=== PATIENT | female | born 1970 | race Caucasian/White ===

== ENCOUNTER → 2017-11-11 | Outpatient (CLI) | payer BC, OTHER ==
[~2017-11-11] MED LIST: CIPR500T89 PO; PERCOCET PO
--- NOTE | 2017-11-11 15:47 | REPMRS ---
Patient History The patient states she had a clinical breast exam in Oct 2017. Patient had first child at age 33. No known family history of cancer. Taking hormonal contraceptives for 7 years. Digital Mammo Screening Bilat: November 11, 2017 - Exam #: [id number] Bilateral CC and MLO view(s) were taken. Technologist: Cherelle Martinez, Technologist Prior study comparison: June 20, 2016, right breast digital mammo diagnostic unilateral performed at [facility]. June 05, 2016, bilateral digital mammo screening bilat performed at [facility]. FINDINGS: There are scattered fibroglandular densities. There is a fairly symmetric fibroglandular pattern in both breasts. There has been no interval development of masses, areas of architectural distortion or clusters of microcalcifications typical of malignancy. ASSESSMENT: BI-RADS/ACR category 2 mammogram. Benign finding(s). Recommendation Routine screening mammogram of both breasts in 1 year (for women over age 40). This mammogram was interpreted with the aid of an FDA-approved computer-aided dectection system. Electronically Signed By: Clifford Carpenter MD 11/11/17 [id number]
== END ==
LOC: M RAD 13:53
PROVIDERS: ATTEND Nurse Practitioner Family
DX: Z12.31 Encounter for screening mammogram for malignant neoplasm of breast (principal); Z79.3 Long term (current) use of hormonal contraceptives

== ENCOUNTER → 2017-12-09 | Outpatient (REF) | payer OTHER | LOC: M SFHCCLAY 16:27 | DX: J02.9 Acute pharyngitis, unspecified (principal) ==

== ENCOUNTER → 2018-02-26 | Outpatient (REF) | payer OTHER ==
[2018-02-26 17:09] LABS: HEMATOCRIT 40.4 % (36.0-47.0); HEMOGLOBIN 13.3 g/dl (12.0-16.0); MEAN CORPUSCULAR HEMOGLOBIN 29.9 pg (27.0-33.0); MEAN CORPUSCULAR HGB CONC 32.9 g/dl (32.0-36.5); MEAN CORPUSCULAR VOLUME 90.8 fl (80.0-96.0); PLATELET COUNT, AUTOMATED 380 10^3/uL (150-450); RED BLOOD COUNT 4.45 10^6/uL (4.00-5.40); RED CELL DISTRIBUTION WIDTH 12.4 % (11.5-14.5); WHITE BLOOD COUNT 9.7 10^3/uL (4.0-10.0)
[2018-02-26 17:31] LABS: ALBUMIN 3.5 GM/DL (3.2-5.2); ALBUMIN/GLOBULIN RATIO 1.09 (1.00-1.93); ALKALINE PHOSPHATASE 70 U/L (45-117); ALT/SGPT 29 U/L (12-78); ANION GAP 7 MEQ/L (8-16); AST/SGOT 20 U/L (7-37); BILIRUBIN,TOTAL 0.4 MG/DL (0.2-1.0); BLOOD UREA NITROGEN 10 MG/DL (7-18); CALCIUM LEVEL 9.8 MG/DL (8.5-10.1); CARBON DIOXIDE LEVEL 25 MEQ/L (21-32); CHLORIDE LEVEL 109 MEQ/L (98-107); CHOLESTEROL LEVEL 177 MG/DL (<200); CHOLESTEROL RISK RATIO 3.765 (<5); GLOMERULAR FILTRATION RATE > 60.0 (>58); GLUCOSE, FASTING 98 MG/DL (70-100); HDL CHOLESTEROL 47 MG/DL (>40); LDL CHOLESTEROL 104.4 MG/DL (<100); NON-HDL-C 130 MG/DL; POTASSIUM SERUM 4.1 MEQ/L (3.5-5.1); SODIUM LEVEL 141 MEQ/L (136-145); TOTAL PROTEIN 6.7 GM/DL (6.4-8.2); TRIGLYCERIDES LEVEL 128 MG/DL (<150)
== END ==
LOC: M SFHCCLAY 10:38
DX: I10 Essential (primary) hypertension (principal); E78.4 Other hyperlipidemia; F41.8 Other specified anxiety disorders; E55.9 Vitamin D deficiency, unspecified

== ENCOUNTER → 2019-03-04 | Outpatient (CLI) | payer BC, OTHER ==
[~2019-03-04] MED LIST changes: +OXYC1TAB23 PO; -PERCOCET PO
--- NOTE | 2019-03-04 15:55 | REP ---
Clinical: Bronchitis type symptoms . Comparison: None . Technique: PA and lateral. Findings: The mediastinum and cardiac silhouette are normal. The lung vilchis are clear and without acute consolidation, effusion, or pneumothorax. The skeletal structures are intact and normal. Impression: 1. No acute cardiopulmonary process.
== END ==
LOC: M CLY 15:12
PROVIDERS: ATTEND Nurse Practitioner Family
DX: Z87.09 Personal history of other diseases of the respiratory system (principal)

== ENCOUNTER → 2019-05-12 | Outpatient (REF) | payer OTHER ==
[2019-05-12 17:09] LABS: ALBUMIN 3.3 GM/DL (3.2-5.2); ALT/SGPT 22 U/L (12-78); BILIRUBIN,TOTAL 0.2 MG/DL (0.2-1.0); BLOOD UREA NITROGEN 16 MG/DL (7-18); CALCIUM LEVEL 10.1 MG/DL (8.5-10.1); CARBON DIOXIDE LEVEL 29 MEQ/L (21-32); CHLORIDE LEVEL 108 MEQ/L (98-107); CHOLESTEROL LEVEL 185 MG/DL (<200); CHOLESTEROL RISK RATIO 3.189 (<5); CREATININE FOR GFR 0.63 MG/DL (0.55-1.30); GLOMERULAR FILTRATION RATE > 60.0 (>58); GLUCOSE, FASTING 121 MG/DL (70-100); HDL CHOLESTEROL 58 MG/DL (>40); LDL CHOLESTEROL 101 MG/DL (<100); NON-HDL-C 127 MG/DL; POTASSIUM SERUM 4.3 MEQ/L (3.5-5.1); SODIUM LEVEL 141 MEQ/L (136-145); TOTAL PROTEIN 6.9 GM/DL (6.4-8.2); TRIGLYCERIDES LEVEL 132 MG/DL (<150)
[2019-05-12 17:11] LABS: TOTAL 25(OH) VITAMIN D 35.2 NG/ML (30.0-100.0)
[2019-05-12 17:21] LABS: HEMATOCRIT 40.7 % (36.0-47.0); HEMOGLOBIN 13.3 g/dl (12.0-15.5); MEAN CORPUSCULAR HGB CONC 32.7 g/dl (32.0-36.5); MEAN CORPUSCULAR VOLUME 91.7 fl (80.0-96.0); PLATELET COUNT, AUTOMATED 415 10^3/uL (150-450); RED BLOOD COUNT 4.44 10^6/uL (4.00-5.40); WHITE BLOOD COUNT 10.9 10^3/uL (4.0-10.0)
== END ==
LOC: M SFHCCLAY 10:44
PROVIDERS: ATTEND Nurse Practitioner Family
DX: I10 Essential (primary) hypertension (principal); E78.49 Other hyperlipidemia; F32.9 Major depressive disorder, single episode, unspecified; E55.9 Vitamin D deficiency, unspecified

== ENCOUNTER → 2019-12-18 | Outpatient (CLI) | payer BC, OTHER ==
--- NOTE | 2019-12-18 19:41 | REPMRS ---
Patient History The patient states she had a clinical breast exam in March 2019. Patient had first child at age 33. No known family history of cancer. Taking hormonal contraceptives for 9 years. Digital Woman Screen Mammo: December 18, 2019 - Exam #: [id number] Bilateral CC and MLO view(s) were taken. Technologist: Rosi De Leon, Technologist Prior study comparison: November 11, 2017, bilateral digital mammo screening bilat, performed at [facility]. June 20, 2016, right breast digital mammo diagnostic unilateral, performed at [facility]. May 21, 2014, bilateral digital mammo screening bilat, performed at [facility]. FINDINGS: The breast tissue is heterogeneously dense. This may lower the sensitivity of mammography. There is a moderate amount of heterogeneously dense fibroglandular tissue which is fairly symmetric. There is no interval development of dominant mass, architectural distortion, or grouped microcalcification typical of malignancy. There has been no change in the appearance of the mammogram from the prior studies. 3-D tomosynthesis shows no additional findings. Assessment: BI-RADS/ACR category 1 mammogram. Negative Mammogram. Recommendation Routine screening mammogram of both breasts in 1 year (for women over age 40). This patient's Lifetime Breast Cancer RIsk is estimated at 11.9 %. This mammogram was interpreted with the aid of an FDA-approved computer-aided dectection system. Electronically Signed By: Hakan Márquez MD 12/18/19 [id number]
== END ==
LOC: M WHC 13:37
PROVIDERS: ATTEND Nurse Practitioner Family
DX: Z12.31 Encounter for screening mammogram for malignant neoplasm of breast (principal)

== ENCOUNTER → 2020-03-11 | Outpatient (REF) | payer OTHER ==
[2020-03-11 16:10] LABS: HEMATOCRIT 39.8 % (36.0-47.0); HEMOGLOBIN 13.1 g/dl (12.0-15.5); MEAN CORPUSCULAR HEMOGLOBIN 29.6 pg (27.0-33.0); MEAN CORPUSCULAR HGB CONC 32.9 g/dl (32.0-36.5); MEAN CORPUSCULAR VOLUME 89.8 fl (80.0-96.0); PLATELET COUNT, AUTOMATED 352 10^3/uL (150-450); RED BLOOD COUNT 4.43 10^6/uL (4.00-5.40); WHITE BLOOD COUNT 8.8 10^3/uL (4.0-10.0)
[2020-03-11 16:24] LABS: ALBUMIN 3.7 GM/DL (3.2-5.2); ALT/SGPT 30 U/L (12-78); BILIRUBIN,TOTAL 0.5 MG/DL (0.2-1.0); BLOOD UREA NITROGEN 18 MG/DL (7-18); CALCIUM LEVEL 10.6 MG/DL (8.5-10.1); CARBON DIOXIDE LEVEL 29 MEQ/L (21-32); CHLORIDE LEVEL 107 MEQ/L (98-107); CHOLESTEROL LEVEL 176 MG/DL (<200); CHOLESTEROL RISK RATIO 3.034 (<5); CREATININE FOR GFR 0.64 MG/DL (0.55-1.30); GLOMERULAR FILTRATION RATE > 60.0 (>58); GLUCOSE, FASTING 123 MG/DL (70-100); HDL CHOLESTEROL 58 MG/DL (>40); LDL CHOLESTEROL 97 MG/DL (<100); NON-HDL-C 118 MG/DL; POTASSIUM SERUM 3.7 MEQ/L (3.5-5.1); SODIUM LEVEL 141 MEQ/L (136-145); TOTAL 25(OH) VITAMIN D 43.1 NG/ML (30.0-100.0); TOTAL PROTEIN 6.8 GM/DL (6.4-8.2); TRIGLYCERIDES LEVEL 103 MG/DL (<150)
== END ==
LOC: M SFHCCLAY 10:30
PROVIDERS: ATTEND Nurse Practitioner Family
DX: E78.5 Hyperlipidemia, unspecified (principal); I10 Essential (primary) hypertension; F32.9 Major depressive disorder, single episode, unspecified; E55.9 Vitamin D deficiency, unspecified

== ENCOUNTER → 2020-10-11 | Outpatient (REF) | payer OTHER ==
[2020-10-11 16:37] LABS: HEMOGLOBIN A1c 5.6 %
[2020-10-11 16:52] LABS: CHOLESTEROL RISK RATIO 3.454 (<5); TOTAL 25(OH) VITAMIN D 28.3 NG/ML (30.0-100.0)
== END ==
LOC: M SFHCCLAY 12:16
PROVIDERS: ATTEND Nurse Practitioner Family
DX: R73.9 Hyperglycemia, unspecified (principal); E78.5 Hyperlipidemia, unspecified; E55.9 Vitamin D deficiency, unspecified

== ENCOUNTER → 2021-04-11 | Outpatient (REF) | payer OTHER ==
[2021-04-11 17:42] LABS: CHOLESTEROL RISK RATIO 3.328 (<5); TOTAL 25(OH) VITAMIN D 39.8 NG/ML (30.0-100.0)
== END ==
LOC: M SFHCCLAY 10:13
PROVIDERS: ATTEND Nurse Practitioner Family
DX: E78.5 Hyperlipidemia, unspecified (principal); E55.9 Vitamin D deficiency, unspecified

== ENCOUNTER → 2022-02-15 | Outpatient (REF) | payer OTHER ==
[2022-02-15 16:58] LABS: HEMATOCRIT 40.8 % (36.0-47.0); HEMOGLOBIN 13.5 g/dl (12.0-15.5); MEAN CORPUSCULAR HEMOGLOBIN 29.7 pg (27.0-33.0); MEAN CORPUSCULAR HGB CONC 33.1 g/dl (32.0-36.5); MEAN CORPUSCULAR VOLUME 89.9 fl (80.0-96.0); PLATELET COUNT, AUTOMATED 405 10^3/uL (150-450); RED BLOOD COUNT 4.54 10^6/uL (4.00-5.40); WHITE BLOOD COUNT 9.4 10^3/uL (4.0-10.0)
[2022-02-15 17:27] LABS: ALT/SGPT 27 U/L (12-78); BILIRUBIN,TOTAL 0.3 MG/DL (0.2-1.0); BLOOD UREA NITROGEN 18 MG/DL (7-18); CALCIUM LEVEL 11.3 MG/DL (8.5-10.1); CARBON DIOXIDE LEVEL 29 MEQ/L (21-32); CHLORIDE LEVEL 109 MEQ/L (98-107); CHOLESTEROL LEVEL 208 MG/DL (<200); CHOLESTEROL RISK RATIO 3.409 (<5); CREATININE FOR GFR 0.62 MG/DL (0.55-1.30); GLOMERULAR FILTRATION RATE > 60.0 (>51); GLUCOSE, FASTING 126 MG/DL (70-100); HDL CHOLESTEROL 61 MG/DL (>40); LDL CHOLESTEROL 119 MG/DL (<100); NON-HDL-C 147 MG/DL; POTASSIUM SERUM 4.3 MEQ/L (3.5-5.1); SODIUM LEVEL 142 MEQ/L (136-145); TOTAL 25(OH) VITAMIN D 45.3 NG/ML (30.0-100.0); TRIGLYCERIDES LEVEL 142 MG/DL (<150)
[2022-02-15 18:17] LABS: HEMOGLOBIN A1c 5.5 %
== END ==
LOC: M SFHCCLAY 10:24
PROVIDERS: ATTEND Nurse Practitioner Family
DX: Z13.1 Encounter for screening for diabetes mellitus (principal); I10 Essential (primary) hypertension; E78.5 Hyperlipidemia, unspecified; E55.9 Vitamin D deficiency, unspecified

== ENCOUNTER → 2022-05-01 | Outpatient (CLI) | payer BC, OTHER | LOC: M WHC 11:36 | PROVIDERS: ATTEND Nurse Practitioner Family | DX: Z12.31 Encounter for screening mammogram for malignant neoplasm of breast (principal) ==

== ENCOUNTER → 2023-02-14 | Outpatient (REF) | payer OTHER ==
[2023-02-14 19:41] LABS: ALBUMIN 3.8 G/DL (3.2-5.2); ALKALINE PHOSPHATASE 93 U/L (46-116); ALT/SGPT 24 U/L (7.0-40); AST/SGOT 14 U/L (<34); BILIRUBIN,TOTAL 0.5 MG/DL (0.3-1.2); BLOOD UREA NITROGEN 14 MG/DL (9-23); CALCIUM LEVEL 11.2 MG/DL (8.5-10.1); CARBON DIOXIDE LEVEL 30 MMOL/L (20-31); CHLORIDE LEVEL 107 MMOL/L (98-107); CHOLESTEROL LEVEL 173 MG/DL (<200); CHOLESTEROL RISK RATIO 2.87 (<5); CREATININE FOR GFR 0.48 MG/DL (0.55-1.30); GLOMERULAR FILTRATION RATE > 60.0 (>51); GLUCOSE, FASTING 110 MG/DL (60-100); HDL CHOLESTEROL 60.2 MG/DL (>40); LDL CHOLESTEROL 90.6 MG/DL (<100); NON-HDL-C 112.8 MG/DL; POTASSIUM SERUM 4.1 MMOL/L (3.5-5.1); SODIUM LEVEL 138 MMOL/L (136-145); TOTAL PROTEIN 6.8 G/DL (5.7-8.2); TRIGLYCERIDES LEVEL 111 MG/DL (<150)
[2023-02-14 19:44] LABS: TOTAL 25(OH) VITAMIN D 61.7 NG/ML (20.0-100.0)
== END ==
LOC: M SFHCCLAY 10:53
PROVIDERS: ATTEND Nurse Practitioner Family
DX: I10 Essential (primary) hypertension (principal); E78.5 Hyperlipidemia, unspecified; E55.9 Vitamin D deficiency, unspecified

== ENCOUNTER → 2023-07-18 | Outpatient (CLI) | payer BC, OTHER | LOC: M WHC 13:09 | PROVIDERS: ATTEND Nurse Practitioner Family | DX: Z12.31 Encounter for screening mammogram for malignant neoplasm of breast (principal) ==

== ENCOUNTER → 2023-08-08 | Outpatient (CLI) | payer BC, OTHER | LOC: M CLY 14:11 | PROVIDERS: ATTEND Physician Assistant | DX: S39.92XA Unspecified injury of lower back, initial encounter (principal); W18.30XA Fall on same level, unspecified, initial encounter; Y92.009 Unspecified place in unspecified non-institutional (private) residence as the place of occurrence of the external cause ==

== ENCOUNTER → 2023-10-01 | Outpatient (REF) | payer BC, OTHER ==
[2023-10-01 17:35] LABS: ALBUMIN 3.6 G/DL (3.2-5.2); ALKALINE PHOSPHATASE 106 U/L (46-116); ALT/SGPT 31 U/L (7.0-40); AST/SGOT 19 U/L (<34); BILIRUBIN,TOTAL 0.5 MG/DL (0.3-1.2); BLOOD UREA NITROGEN 14 MG/DL (9-23); CALCIUM LEVEL 11.1 MG/DL (8.5-10.1); CARBON DIOXIDE LEVEL 28 MMOL/L (20-31); CHLORIDE LEVEL 106 MMOL/L (98-107); CHOLESTEROL LEVEL 213 MG/DL (<200); CREATININE FOR GFR 0.47 MG/DL (0.55-1.30); GLOMERULAR FILTRATION RATE > 60.0 (>51); GLUCOSE, FASTING 124 MG/DL (60-100); POTASSIUM SERUM 4.6 MMOL/L (3.5-5.1); SODIUM LEVEL 142 MMOL/L (136-145); TOTAL PROTEIN 6.7 G/DL (5.7-8.2); TRIGLYCERIDES LEVEL 115 MG/DL (<150)
== END ==
LOC: M SFHCCLAY 10:01
PROVIDERS: ATTEND Nurse Practitioner Family
DX: I10 Essential (primary) hypertension (principal); E78.5 Hyperlipidemia, unspecified

== ENCOUNTER → 2023-10-22 | Outpatient (CLI) | payer BC, OTHER | LOC: M WHC 10:32 | PROVIDERS: ATTEND Nurse Practitioner Family | DX: Z78.0 Asymptomatic menopausal state (principal) ==

== ENCOUNTER → 2023-12-06 | Outpatient (REF) | payer BC, OTHER ==
[2023-12-06 15:14] LABS: CALCIUM LEVEL 12.5 MG/DL (8.5-10.1)
[2023-12-06 15:18] LABS: PTH INTACT 156.4 PG/ML (18.5-88.0)
[2023-12-06 15:19] LABS: TOTAL 25(OH) VITAMIN D 53.5 NG/ML (20.0-100.0)
== END ==
LOC: M LABDRAWC 11:23
PROVIDERS: ATTEND Internal Medicine Endocrinology, Diabetes & Metabolism
DX: M81.0 Age-related osteoporosis without current pathological fracture (principal)

== ENCOUNTER → 2024-01-30 | Outpatient (CLI) | payer BC, OTHER | LOC: M RAD 07:11 | PROVIDERS: ATTEND Nurse Practitioner Family | DX: E83.52 Hypercalcemia (principal) ==

== ENCOUNTER → 2024-04-30 | Outpatient (REF) | payer BC ==
[2024-04-30 18:34] LABS: BASO # 0.1 10^3/uL (0.0-0.2); BASO % 0.9 % (0.0-1.0); EOS # 0.2 10^3/uL (0.0-0.5); EOS % 2.3 % (0.0-3.0); HEMATOCRIT 41.9 % (36.0-47.0); LYMPH # 2.4 10^3/uL (1.5-5.0); LYMPH % 26.7 % (24.0-44.0); MEAN CORPUSCULAR HGB CONC 33.4 g/dl (32.0-36.5); MEAN CORPUSCULAR VOLUME 89.7 fl (80.0-96.0); MONO # 0.8 10^3/uL (0.0-0.8); MONO % 8.3 % (2.0-8.0); NEUTROPHILS # 5.5 10^3/uL (1.5-8.5); NEUTROPHILS % 61.4 % (36.0-66.0); PLATELET COUNT, AUTOMATED 350 10^3/uL (150-450); RED BLOOD COUNT 4.67 10^6/uL (4.00-5.40)
[2024-04-30 18:37] LABS: ALBUMIN 3.7 G/DL (3.2-5.2); ALKALINE PHOSPHATASE 109 U/L (46-116); ALT/SGPT 29 U/L (7.0-40); AST/SGOT 12 U/L (<34); BILIRUBIN,TOTAL 0.7 MG/DL (0.3-1.2); BLOOD UREA NITROGEN 13 MG/DL (9-23); CALCIUM LEVEL 11.6 MG/DL (8.5-10.1); CARBON DIOXIDE LEVEL 31 MMOL/L (20-31); CHLORIDE LEVEL 104 MMOL/L (98-107); CREATININE FOR GFR 0.46 MG/DL (0.55-1.30); GLOMERULAR FILTRATION RATE > 60.0 (>51); GLUCOSE, FASTING 119 MG/DL (60-100); POTASSIUM SERUM 3.9 MMOL/L (3.5-5.1); SODIUM LEVEL 141 MMOL/L (136-145); TOTAL PROTEIN 6.7 G/DL (5.7-8.2)
== END ==
LOC: M SFHCCLAY 10:38
PROVIDERS: ATTEND Nurse Practitioner Family
DX: Z01.818 Encounter for other preprocedural examination (principal)

== ENCOUNTER → 2024-06-24 | Outpatient (REF) | payer BC ==
[2024-06-24 17:21] LABS: FREE T4 1.05 NG/DL (0.89-1.76); THYROID STIMULATING HORMONE 1.383 uIU/ML (0.55-4.78)
[2024-06-24 17:24] LABS: ALBUMIN 3.8 G/DL (3.2-5.2); ALKALINE PHOSPHATASE 99 U/L (46-116); ALT/SGPT 21 U/L (7.0-40); AST/SGOT 10 U/L (<34); BILIRUBIN,TOTAL 0.5 MG/DL (0.3-1.2); BLOOD UREA NITROGEN 16 MG/DL (9-23); CALCIUM LEVEL 10.1 MG/DL (8.5-10.1); CARBON DIOXIDE LEVEL 30 MMOL/L (20-31); CHLORIDE LEVEL 104 MMOL/L (98-107); CREATININE FOR GFR 0.53 MG/DL (0.55-1.30); GLOMERULAR FILTRATION RATE > 60.0 (>51); GLUCOSE, FASTING 116 MG/DL (60-100); SODIUM LEVEL 140 MMOL/L (136-145); TOTAL PROTEIN 6.9 G/DL (5.7-8.2)
== END ==
LOC: M SFHCCLAY 11:00
PROVIDERS: ATTEND Nurse Practitioner Family
DX: I10 Essential (primary) hypertension (principal); M54.50 Low back pain, unspecified; E55.9 Vitamin D deficiency, unspecified; E78.5 Hyperlipidemia, unspecified; G89.29 Other chronic pain; E83.52 Hypercalcemia

== ENCOUNTER → 2024-07-24 | Outpatient (CLI) | payer BC | LOC: M WHC 13:39 | PROVIDERS: ATTEND Nurse Practitioner Family | DX: Z12.31 Encounter for screening mammogram for malignant neoplasm of breast (principal) ==

== ENCOUNTER → 2024-08-27 | Outpatient (REF) | payer BC | LOC: M SFHCWAGY 11:48 | PROVIDERS: ATTEND Nurse Practitioner Family | DX: Z01.419 Encounter for gynecological examination (general) (routine) without abnormal findings (principal) ==

== ENCOUNTER → 2025-02-03 | Outpatient (REF) | payer BC ==
[2025-02-03 19:07] LABS: ALBUMIN 3.5 G/DL (3.2-5.2); ALKALINE PHOSPHATASE 67 U/L (35-104); ALT/SGPT 24 U/L (7.0-40); AST/SGOT 13 U/L (<34); BILIRUBIN,TOTAL 0.5 MG/DL (0.3-1.2); BLOOD UREA NITROGEN 19 MG/DL (9-23); CARBON DIOXIDE LEVEL 28 MMOL/L (20-31); CHLORIDE LEVEL 106 MMOL/L (98-107); CHOLESTEROL LEVEL 172 MG/DL (<200); CHOLESTEROL RISK RATIO 3.14 (<5); CREATININE FOR GFR 0.52 MG/DL (0.55-1.30); GLOMERULAR FILTRATION RATE > 60.0 (>51); GLUCOSE, FASTING 130 MG/DL (60-100); HDL CHOLESTEROL 54.7 MG/DL (>40); LDL CHOLESTEROL 101.1 MG/DL (<100); NON-HDL-C 117.3 MG/DL; POTASSIUM SERUM 4.3 MMOL/L (3.5-5.1); SODIUM LEVEL 143 MMOL/L (136-145); TOTAL PROTEIN 6.7 G/DL (5.7-8.2); TRIGLYCERIDES LEVEL 81 MG/DL (<150)
[2025-02-03 19:14] LABS: HEMOGLOBIN A1c 5.5 % (4.0-6.0)
== END ==
LOC: M SFHCCLAY 11:12
PROVIDERS: ATTEND Nurse Practitioner Family
DX: E66.09 Other obesity due to excess calories (principal); M54.50 Low back pain, unspecified; Z86.59 Personal history of other mental and behavioral disorders; I10 Essential (primary) hypertension; E55.9 Vitamin D deficiency, unspecified; E78.5 Hyperlipidemia, unspecified; G89.29 Other chronic pain; E83.52 Hypercalcemia

== ENCOUNTER → 2025-08-12 | Outpatient (REF) | payer BC ==
[2025-08-12 19:15] LABS: ALT/SGPT 30 U/L (7.0-40); AST/SGOT 18 U/L (<34); CALCIUM LEVEL 9.6 MG/DL (8.5-10.1); CARBON DIOXIDE LEVEL 30 MMOL/L (20-31); CHLORIDE LEVEL 104 MMOL/L (98-107); CHOLESTEROL LEVEL 245 MG/DL (<200); CHOLESTEROL RISK RATIO 3.43 (<5); CREATININE FOR GFR 0.58 MG/DL (0.55-1.30); GLOMERULAR FILTRATION RATE > 90.0 (>51); LDL CHOLESTEROL 148.2 MG/DL (<100); NON-HDL-C 173.6 MG/DL; POTASSIUM SERUM 4.1 MMOL/L (3.5-5.1); SODIUM LEVEL 143 MMOL/L (136-145); TRIGLYCERIDES LEVEL 127 MG/DL (<150)
[2025-08-12 19:23] LABS: ESTIMATED AVERAGE GLUCOSE 114.0 MG/DL (60-110)
== END ==
LOC: M SFHCCLAY 11:26
PROVIDERS: ATTEND Nurse Practitioner Family
DX: E66.09 Other obesity due to excess calories (principal); M54.50 Low back pain, unspecified; Z86.59 Personal history of other mental and behavioral disorders; I10 Essential (primary) hypertension; E55.9 Vitamin D deficiency, unspecified; E78.5 Hyperlipidemia, unspecified; G89.29 Other chronic pain

== ENCOUNTER → 2025-08-27 | Outpatient (CLI) | payer BC | LOC: M WHC 08:07 | PROVIDERS: ATTEND Nurse Practitioner Family | DX: Z12.31 Encounter for screening mammogram for malignant neoplasm of breast (principal); R92.323 Mammographic fibroglandular density, bilateral breasts ==